=== PATIENT | female | born 1995 | race Caucasian/White ===

== ENCOUNTER 2024-02-20 13:23 | Emergency (ER) | payer MEDICAID ==
[~2024-02-20] VITALS: Ht 154.9 cm; Wt 56.0 kg
[2024-02-20 13:34] VITALS: O2SAT 98
[2024-02-20 14:22] LABS: HEMATOCRIT. 40.8 % (36.0-48.0); HEMOGLOBIN. 13.5 g/dL (12.0-16.0); MEAN CORPUSCULAR HEMOGLOBIN 30.7 pg (28.0-32.0); MEAN CORPUSCULAR HGB CONC 33.1 g/dL (31.0-37.0); MEAN CORPUSCULAR VOLUME 92.6 fL (81.0-99.0); MEAN PLATELET VOLUME 9.6 fl (7.4-10.4); PLATELET 215 x1000/uL (130-400); RED CELL DISTRIBUTION WIDTH 13.5 % (11.6-14.6); WHITE BLOOD COUNT 12.7 x1000/uL (4.5-11.0)
[2024-02-20 14:31] LABS: CHLORIDE 105 mEq/L (98-107); POTASSIUM 3.5 mEq/L (3.5-5.1); SODIUM 137 mEq/L (136-145)
[2024-02-20 14:32] LABS: CALCIUM 9.4 mg/dL (8.7-10.4); CARBON DIOXIDE 21 mEq/L (21-32)
[2024-02-20 14:35] LABS: DIFFERENTIAL COMMENT 1
[2024-02-20 14:37] LABS: CREATININE 0.6 mg/dL (0.6-1.0); GLUCOSE 109 mg/dL (70-105); UREA NITROGEN BLOOD 11 mg/dL (9-23)
[2024-02-20 14:51] VITALS: BP 103/65; PULSE 114; RESP 18; TEMP 36.66960; O2SAT 98
[2024-02-20 14:55] LABS: HCG SCREEN NEGATIVE; PLATELET ESTIMATE NORMAL
[2024-02-20 14:56] LABS: ALANINE AMINOTRANSFERASE 18 IU/L (10-49); ALBUMIN 4.5 g/dL (3.2-4.8); ASPARTATE AMINOTRANSFERASE 20 IU/L (<34); BILIRUBIN DIRECT 0.3 mg/dL (<=3.0); BILIRUBIN TOTAL 1.2 mg/dL (0.1-1.0); PROTEIN TOTAL 7.4 g/dL (6.0-8.3)
[2024-02-20] MEDS: KETOROLAC 30MG/ML VIAL IM ONE (15:00)
[2024-02-20] MEDS: ONDANSETRON HCL 4MG/2ML INJ IM ONE (15:00)
[2024-02-20] MEDS: ACETAMINOPHEN 325MG TABLET PO ONE (15:01)
[2024-02-20] MEDS ORDERED: NAPR-681 MT (16:05)
== END 2024-02-20 16:47 | disposition home or self-care (01) ==
LOC: ER 13:31
DX: N20.0 Calculus of kidney (principal); R11.2 Nausea with vomiting, unspecified; R50.9 Fever, unspecified; Z79.1 Long term (current) use of non-steroidal anti-inflammatories (NSAID)
CPT/HCPCS: 99285; 74176; 80076; 80048; 84703; 83690; 85025; 36415; 93005; 96372; J1885; J2405